=== PATIENT | female | born 1940 | race Caucasian/White ===

== ENCOUNTER 2021-03-07 17:04 | Emergency (ER) | payer OTHER ==
[~2021-03-07 17:04] MED LIST: AMIODARONE HCL200 MG PO; ASPIRIN CHEWABL81 MG PO; B12 ACTIVE1000 MCG PO; BUMETANIDE2 MG PO; CELEXA20 MG PO; CITALOPRAM HBR20 MG PO; CLARITIN 10MG T10 MG PO; CRESTOR20 MG PO; DECADRON4 MG PO; GLUCOPHAGE1000 MG PO; IMDUR ER TAB 3030 MG PO; IPRAT-ALBUT 0.5-3 ML INH; JANUMET XR 1001 EACH PO; JARDIANCE25 MG PO; MAGNESIUM400 MG PO; METOPROLOL TART25 MG PO; MIRTAZAPINE15 MG PO; MULTIVITAMINS1 EAC1 PO; NEURONTIN400 MG PO; OMEPRAZOLE20 MG PO; OMNICEF 300 MG300 MG PO; POTASSIUM99 M1 PO; PRAVACHOL40 MG PO; VOLTAREN ARTHRI20 GM TP
[2021-03-07] MEDS ORDERED: HYDROCODON-ACE1 EAC4 PO (19:50)
== END 2021-03-07 20:15 | disposition home or self-care (01) ==
LOC: ER1 17:04
DX: S39.012A Strain of muscle, fascia and tendon of lower back, initial encounter (principal); I25.10 Atherosclerotic heart disease of native coronary artery without angina pectoris; I10 Essential (primary) hypertension; Z90.49 Acquired absence of other specified parts of digestive tract; Z90.89 Acquired absence of other organs; Z90.710 Acquired absence of both cervix and uterus; Z79.899 Other long term (current) drug therapy; E78.5 Hyperlipidemia, unspecified; J44.9 Chronic obstructive pulmonary disease, unspecified; E11.9 Type 2 diabetes mellitus without complications; X50.1XXA Overexertion from prolonged static or awkward postures, initial encounter; Y92.009 Unspecified place in unspecified non-institutional (private) residence as the place of occurrence of the external cause
CPT/HCPCS: 72131; 96372; 99283; J1885

== ENCOUNTER 2021-09-16 19:41 | Observation (INO) | payer OTHER ==
[~2021-09-16] VITALS: Ht 162.6 cm; Wt 100.7 kg
[2021-09-16 18:17] LABS: HEMOGLOBIN 11.4 gm/dl (12.3-15.3); RED BLOOD COUNT 4.05 M/UL (4.00-5.10); WHITE BLOOD COUNT 8.1 K/UL (4.5-11.0)
[2021-09-16 18:59] LABS: BUN/CREATININE RATIO 15 (0-10)
[~2021-09-16 19:41] MED LIST changes: +HYDROCODON-ACE1 EAC4 PO
--- NOTE | 2021-09-17 12:01 | NUR ---
DR SEQUEIRA NOTIFIED OF PTS CT SCAN AWAITING ORDERS
[2021-09-18 06:59] LABS: HEMOGLOBIN 10.9 gm/dl (12.3-15.3); RED BLOOD COUNT 3.85 M/UL (4.00-5.10); WHITE BLOOD COUNT 4.2 K/UL (4.5-11.0)
[2021-09-19 05:48] LABS: HEMOGLOBIN 10.2 gm/dl (12.3-15.3); RED BLOOD COUNT 3.61 M/UL (4.00-5.10); WHITE BLOOD COUNT 4.2 K/UL (4.5-11.0)
[2021-09-20 06:18] LABS: HEMOGLOBIN 10.3 gm/dl (12.3-15.3); RED BLOOD COUNT 3.78 M/UL (4.00-5.10); WHITE BLOOD COUNT 3.8 K/UL (4.5-11.0)
[2021-09-21 06:33] LABS: HEMOGLOBIN 10.2 gm/dl (12.3-15.3); RED BLOOD COUNT 3.63 M/UL (4.00-5.10); WHITE BLOOD COUNT 4.7 K/UL (4.5-11.0)
[2021-09-22 04:43] LABS: HEMOGLOBIN 10.5 gm/dl (12.3-15.3); RED BLOOD COUNT 3.71 M/UL (4.00-5.10)
[2021-09-22 04:49] LABS: WHITE BLOOD COUNT 5.9 K/UL (4.5-11.0)
--- NOTE | 2021-09-23 10:00 | NUR ---
PATIENT NOTED TO BE GONE FROM THE UNIT FOR LONGER THAN 45 MINUTES AT A TIME, WHEN SHE RETURNED I EDUCATED HER ON THE NEED FOR HER TO BE ON THE UNIT SO HER TELEMETRY COULD BE MONITORED AND THAT SHE WAS AT RISK FOR FALLS AND OTHER ISSUES DUE TO BEING ADMITTED FOR ILLNESS. SHE SAID SHE WOULD STAY ON THE UNIT WHEN SHE GERTS BLOOD INFUSIONS BUT WOULD BE LEAVING TO SMOKE DR SEQUEIRA AWARE.NO NEW ORDERS AT THIS TIME.
[2021-09-23 10:23] LABS: HEMOGLOBIN 10.9 gm/dl (12.3-15.3); RED BLOOD COUNT 3.97 M/UL (4.00-5.10)
[2021-09-23 10:27] LABS: WHITE BLOOD COUNT 3.8 K/UL (4.5-11.0)
[2021-09-23] MEDS ORDERED: ELIQUIS 5 MG TAB5 MG PO (17:03)
[2021-09-23] MEDS ORDERED: DOCUSATE SODIU100 MG PO (17:03)
[2021-09-23] MEDS ORDERED: AMOX TR-K CLV1 EAC4 PO (17:03)
[2021-09-23] MEDS ORDERED: POLYETHYLENE GL17 GM PO (17:03)
== END 2021-09-23 18:50 | disposition home health service (06) ==
LOC: ER1 19:41 → MED SURG 4 20:18 → CDU 20:18 → MED SURG 4 22:45
PROVIDERS: ADMIT Internal Medicine
DX: R07.89 Other chest pain (principal); K57.32 Diverticulitis of large intestine without perforation or abscess without bleeding; J44.9 Chronic obstructive pulmonary disease, unspecified; I11.0 Hypertensive heart disease with heart failure; I50.32 Chronic diastolic (congestive) heart failure; I25.10 Atherosclerotic heart disease of native coronary artery without angina pectoris; E11.9 Type 2 diabetes mellitus without complications; E78.5 Hyperlipidemia, unspecified; F41.9 Anxiety disorder, unspecified; M19.90 Unspecified osteoarthritis, unspecified site; I45.10 Unspecified right bundle-branch block; I48.0 Paroxysmal atrial fibrillation; E66.9 Obesity, unspecified; Z99.81 Dependence on supplemental oxygen; Z86.16 Personal history of COVID-19; Z85.038 Personal history of other malignant neoplasm of large intestine; Z77.22 Contact with and (suspected) exposure to environmental tobacco smoke (acute) (chronic); Z88.8 Allergy status to other drugs, medicaments and biological substances; Z79.82 Long term (current) use of aspirin; Z79.84 Long term (current) use of oral hypoglycemic drugs; Z79.899 Other long term (current) drug therapy; Z20.822 Contact with and (suspected) exposure to COVID-19
CPT/HCPCS: 0241U; 36415; 71045; 74160; 80053; 82550; 82553; 82962; 83690; 83735; 83874; 83880; 84100; 84484; 85025; 85379; 85610; 85730; 86140; 93005; 94640; 94664; 94760; 97161; C9113; G0378; J1650; J2543; J2920; Q9967; U0002

== ENCOUNTER → 2021-12-18 | Outpatient (CLI) | payer OTHER ==
[~2021-12-18] MED LIST changes: +AMOX TR-K CLV1 EAC4 PO; +DOCUSATE SODIU100 MG PO; +ELIQUIS 5 MG TAB5 MG PO; +POLYETHYLENE GL17 GM PO
== END ==
LOC: HEART 5 14:30
DX: R05.9 Cough, unspecified (principal)
CPT/HCPCS: 94060; 94729

== ENCOUNTER 2022-02-24 15:20 | Observation (INO) | payer OTHER ==
[~2022-02-24] VITALS: Ht 162.6 cm; Wt 99.0 kg
[2022-02-24 15:59] LABS: HEMOGLOBIN 11.5 gm/dl (12.3-15.3); RED BLOOD COUNT 4.07 M/UL (4.00-5.10); WHITE BLOOD COUNT 5.5 K/UL (4.5-11.0)
[2022-02-24 16:28] LABS: BUN/CREATININE RATIO 15 (0-10)
[2022-02-25 03:11] LABS: HEMOGLOBIN 11.4 gm/dl (12.3-15.3); RED BLOOD COUNT 4.02 M/UL (4.00-5.10); WHITE BLOOD COUNT 4.2 K/UL (4.5-11.0)
[2022-02-25 04:21] LABS: BUN/CREATININE RATIO 14 (0-10)
== END 2022-02-25 17:56 | disposition home or self-care (01) ==
LOC: ER1 15:20 → CDU 18:30 → M/S 18:30
PROVIDERS: Emergency Medicine; ADMIT Internal Medicine
DX: R07.89 Other chest pain (principal); I48.0 Paroxysmal atrial fibrillation; J44.9 Chronic obstructive pulmonary disease, unspecified; E11.9 Type 2 diabetes mellitus without complications; I10 Essential (primary) hypertension; G47.33 Obstructive sleep apnea (adult) (pediatric); R06.02 Shortness of breath; R60.0 Localized edema; I25.10 Atherosclerotic heart disease of native coronary artery without angina pectoris; E78.5 Hyperlipidemia, unspecified; Z98.61 Coronary angioplasty status; Z98.890 Other specified postprocedural states; Z85.038 Personal history of other malignant neoplasm of large intestine; Z79.01 Long term (current) use of anticoagulants; Z90.49 Acquired absence of other specified parts of digestive tract; Z93.3 Colostomy status; Z90.710 Acquired absence of both cervix and uterus; Z96.659 Presence of unspecified artificial knee joint; Z90.721 Acquired absence of ovaries, unilateral; Z82.49 Family history of ischemic heart disease and other diseases of the circulatory system; Z88.8 Allergy status to other drugs, medicaments and biological substances; Z20.822 Contact with and (suspected) exposure to COVID-19
CPT/HCPCS: 36415; 71045; 80048; 80053; 82550; 82553; 83735; 84484; 85025; 93005; 96374; 99285; G0378; J1885; U0002